=== PATIENT | male | born 1955 | race Caucasian/White ===

== ENCOUNTER 2017-10-23 08:33 | Day surgery (SDC) | payer MEDICAID ==
[~2017-10-23] VITALS: Ht 193 cm; Wt 79.5 kg
[~2017-10-23 08:33] MED LIST: ENZY1TAB5 PO; FURO80TA87 PO; PANT-47 PO; POTA20TA19 PO
[2017-10-23] MEDS ORDERED: MULT-1085 PO (08:51)
[2017-10-23] MEDS ORDERED: GLUC-133 PO (08:51)
[2017-10-23] MEDS ORDERED: LORA1TAB PO (08:51)
[2017-10-23 09:07] VITALS: BP 119/73
[2017-10-23] MEDS ORDERED: MIDAZolam 5mg/ml 2ml vial ONE (09:19)
[2017-10-23] MEDS ORDERED: fentaNYL/PF 50MCG/1 ML 2ML syringe ONE (09:19)
[2017-10-23] MEDS ORDERED: LIDOcaine Viscous 15ml cup ONE (09:20)
[2017-10-23 10:30] VITALS: BP 118/72
[2017-10-23 10:40] VITALS: BP 114/67
[2017-10-23 10:50] VITALS: BP 117/77
== END 2017-10-23 11:30 | disposition home or self-care (01) ==
LOC: GI LAB 08:33
PROVIDERS: ATTEND Internal Medicine Gastroenterology
DX: R13.12 Dysphagia, oropharyngeal phase (principal); R13.14 Dysphagia, pharyngoesophageal phase
CPT/HCPCS: 43248; 99152; J2250; J3010; J7030; A4620; G0500

== ENCOUNTER 2018-07-08 07:29 | Day surgery (SDC) | payer MEDICAID ==
[~2018-07-08] VITALS: Ht 190.5 cm; Wt 76.6 kg
[~2018-07-08 07:29] MED LIST changes: -FURO80TA87 PO; +GLUC-133 PO; +LORA1TAB PO; +MULT-1085 PO; -POTA20TA19 PO
[2018-07-08 07:50] VITALS: BP 109/71
[2018-07-08] MEDS ORDERED: normal saline 1000ml 1,000 ML IV PRN (07:55)
[2018-07-08] MEDS ORDERED: TRAM50TA2 PO (08:05)
[2018-07-08] MEDS ORDERED: IBUP-2417 PO (08:05)
[2018-07-08] MEDS ORDERED: LIDOcaine 1%/PF 5ML 10 MG/ML VIAL SQ ONE (08:35)
[2018-07-08] MEDS ORDERED: midazolam 2 mg/2 ml injection IV PRN (08:35)
[2018-07-08] MEDS ORDERED: fentaNYL/PF 50MCG/1 ML 2ML syringe IV PRN (08:35)
[2018-07-08] MEDS ORDERED: heparin sodium, porcine/PF 100unit/ml 5ML syringe ICATH ONE (08:35)
[2018-07-08 09:02] LABS: BASOPHILS # (AUTO) 0.1 X10'3 (0-0.2); BASOPHILS % (AUTO) 1.3 % (0-1); EOSINOPHILS # (AUTO) 0.2 X10'3 (0-0.9); EOSINOPHILS % (AUTO) 3.3 % (0-6); LYMPHOCYTES # (AUTO) 2.8 X10'3 (1.1-4.8); LYMPHOCYTES % (AUTO) 37.9 % (21-51); MEAN CORPUSCULAR HEMOGLOBIN 32.6 PG (27.0-31.0); MEAN CORPUSCULAR VOLUME 98.9 FL (78-98); MEAN PLATELET VOLUME 9.2 FL (7.4-10.4); MONOCYTES # (AUTO) 0.9 X10'3 (0-0.9); MONOCYTES % (AUTO) 11.9 % (2-12); NEUTROPHILS # (AUTO) 3.3 X10'3 (1.8-7.7); NEUTROPHILS % (AUTO) 45.6 % (42-75); PRE OP HEMATOCRIT 42.3 % (42.0-52.0); PRE OP HEMOGLOBIN 13.9 g/dL (14.0-17.9); PRE OP PLATELET COUNT 318 X10'3 (140-440); RED BLOOD COUNT 4.27 X10'6 (4.70-6.10)
[2018-07-08] MEDS ORDERED: heparin sodium, porcine/PF 100unit/ml 5ML syringe ONE (09:08)
[2018-07-08] MEDS ORDERED: LIDOcaine 1% (10mg/ml) 2ml vial ONE (09:08)
[2018-07-08] MEDS ORDERED: fentaNYL/PF 50MCG/1 ML 2ML syringe ONE (09:09)
[2018-07-08] MEDS ORDERED: midazolam 2 mg/2 ml injection ONE (09:09)
[2018-07-08 09:14] LABS: ALBUMIN 4.1 G/DL (3.4-5.0); ANION GAP 10 (8-16); BLOOD UREA NITROGEN 21 MG/DL (7-18); BUN/CREATININE RATIO 22.3 (5.4-32.0); CALCIUM 9.3 MG/DL (8.5-10.1); CHLORIDE 104 MMOL/L (99-107); CREATININE 0.94 MG/DL (0.60-1.10); GLUCOSE 96 MG/DL (70-104); SODIUM 142 MMOL/L (135-145); TOTAL CARBON DIOXIDE 28.2 MMOL/L (24-32); eGFR 82 ML/MIN
[2018-07-08 09:21] LABS: PROTHROMBIN TIME 10.2 SECONDS (9.0-12.0)
[2018-07-08 10:15] VITALS: BP 130/73
[2018-07-08 10:30] VITALS: BP 133/74
[2018-07-08 10:45] VITALS: BP 127/71
[2018-07-08 11:00] VITALS: BP 128/82
== END 2018-07-08 11:15 | disposition home or self-care (01) ==
LOC: SSTAY O 07:29
PROVIDERS: ATTEND Radiology Diagnostic Radiology
DX: C25.2 Malignant neoplasm of tail of pancreas (principal); I10 Essential (primary) hypertension; J44.9 Chronic obstructive pulmonary disease, unspecified; K21.9 Gastro-esophageal reflux disease without esophagitis; N40.0 Benign prostatic hyperplasia without lower urinary tract symptoms; M06.9 Rheumatoid arthritis, unspecified; G89.29 Other chronic pain; F41.8 Other specified anxiety disorders; Z92.21 Personal history of antineoplastic chemotherapy; Z90.411 Acquired partial absence of pancreas; Z87.891 Personal history of nicotine dependence; Z72.89 Other problems related to lifestyle; Z79.891 Long term (current) use of opiate analgesic; Z79.1 Long term (current) use of non-steroidal anti-inflammatories (NSAID); Z86.69 Personal history of other diseases of the nervous system and sense organs; Z90.81 Acquired absence of spleen; Z79.899 Other long term (current) drug therapy; Z98.890 Other specified postprocedural states
CPT/HCPCS: 36415; 36561; 76937; 77001; 80048; 85025; 85610; 99152; 99153; J1642; J2250; J3010; J3490; J7030; A6219; C1788; C1894

== ENCOUNTER 2022-01-23 07:54 | Day surgery (SDC) | payer MEDICARE, MEDICAID ==
[2022-01-23] VITALS (10 sets, daily range): BP systolic 97–137; BP diastolic 51–99
[~2022-01-23] VITALS: Ht 190.5 cm; Wt 71.7 kg
[~2022-01-23 07:54] MED LIST changes: -GLUC-133 PO; +IBUP-2417 PO; +TRAM50TA2 PO
[2022-01-23] MEDS ORDERED: LIDOcaine 1%/PF 5ML 10 MG/ML VIAL SQ ONE (08:05)
[2022-01-23] MEDS ORDERED: albumin 25% 100mL bottle x 1 IV PRN (08:50)
[2022-01-23] MEDS ORDERED: POTA-82 PO (08:57)
[2022-01-23] MEDS ORDERED: CIPR500T5 PO (08:57)
[2022-01-23] MEDS ORDERED: ESCI-8 PO (08:57)
[2022-01-23] MEDS ORDERED: MSC30T PO (08:57)
[2022-01-23] MEDS ORDERED: DEXA4TAB PO (08:57)
[2022-01-23] MEDS ORDERED: FLO0.4C PO (08:57)
[2022-01-23] MEDS ORDERED: HYDR4TAB55 PO (08:57)
[2022-01-23] MEDS ORDERED: AMYL1CAP54 (08:57)
[2022-01-23] MEDS ORDERED: DOCETAXEL (09:00)
[2022-01-23] MEDS ORDERED: CAPE500T (09:00)
[2022-01-23] MEDS ORDERED: ONDA-104 PO (09:00)
[2022-01-23] MEDS ORDERED: ondansetron/PF 4mg/2ml inj IV ONE (09:25)
== END 2022-01-23 10:40 | disposition home or self-care (01) ==
LOC: SSTAY O 07:54
PROVIDERS: ATTEND Radiology Vascular & Interventional Radiology
DX: R18.8 Other ascites (principal); R14.0 Abdominal distension (gaseous); N40.0 Benign prostatic hyperplasia without lower urinary tract symptoms; Z88.5 Allergy status to narcotic agent; Z85.07 Personal history of malignant neoplasm of pancreas; Z79.899 Other long term (current) drug therapy
CPT/HCPCS: 49083; J2405; J3490; P9047

== ENCOUNTER 2022-02-06 08:06 | Day surgery (SDC) | payer MEDICARE, MEDICAID ==
[~2022-02-06] VITALS: Ht 190.5 cm; Wt 60.5 kg
[2022-02-06] VITALS (9 sets, daily range): BP systolic 92–130; BP diastolic 51–98
[~2022-02-06 08:06] MED LIST changes: +AMYL1CAP54; +CAPE500T; +CIPR500T5 PO; +DEXA4TAB PO; +DOCETAXEL; -ENZY1TAB5 PO; +ESCI-8 PO; +FLO0.4C PO; +HYDR4TAB55 PO; -IBUP-2417 PO; -LORA1TAB PO; +MSC30T PO; +ONDA-104 PO; +POTA-82 PO; -TRAM50TA2 PO
[2022-02-06] MEDS ORDERED: LIDOcaine 1%/PF 5ML 10 MG/ML VIAL SQ ONE (08:10)
[2022-02-06] MEDS ORDERED: FURO40TA4 PO (08:39)
[2022-02-06] MEDS ORDERED: albumin 25% 100mL bottle x 1 IV PRN (09:05)
== END 2022-02-06 11:05 | disposition home or self-care (01) ==
LOC: SSTAY O 08:06
PROVIDERS: ATTEND Preventive Medicine Aerospace Medicine
DX: R18.8 Other ascites (principal); R14.0 Abdominal distension (gaseous); N40.0 Benign prostatic hyperplasia without lower urinary tract symptoms; Z85.07 Personal history of malignant neoplasm of pancreas; Z79.899 Other long term (current) drug therapy
CPT/HCPCS: 49083; J3490; P9047